=== PATIENT | female | born 1970 | race Caucasian/White ===

== ENCOUNTER 2016-04-20 13:31 | Emergency (ER) | payer OTHER ==
[2016-04-20 13:44] VITALS: TEMP 97.5; BMI 24.5
[2016-04-20] MEDS ORDERED: LORAZEPAM CARPU-JECT 2 MG/ML DISP.SYRIN IVPUSH ONE (14:35)
[2016-04-20] MEDS ORDERED: SODIUM CHLORIDE 1,000 ML IV STA (14:35)
[2016-04-20] MEDS ORDERED: METOCLOPRAMIDE HCL INJECTION 10 MG/2 ML VIAL IVPUSH ONE (14:35)
--- NOTE | 2016-04-20 14:38 | PDOC ---
History of Present Illness - General Chief Complaint: Nausea/Vomiting Stated Complaint: VOMITING Time Seen by Provider: 04/20/16 14:32 History Source: Patient, Spouse Exam Limitations: No Limitations - History of Present Illness Initial Comments: 04/20/16 14:36 The patient is a 45-year-old female, with a significant past medical history of bipolar disorder, who takes clonazepam 0.5 mg twice daily, and presents to the emergency department complaining of nausea, vomiting and "feeling very jittery. " She has vomited approximately 8 times between yesterday and now. There was no blood or bile in the vomit. She denies abdominal pain. She denies diarrhea. She reports mild chills, but denies fever. She states that she has not been able to take any of her oral medications, and feels that she is "withdrawing from the clonazepam." Her states that in the past, if she has missed 2 doses of clonazepam, she has "had withdrawal." She also drank approximately 5 alcoholic beverages yesterday, which is very atypical for her. Past History - Past Medical History Allergies/Adverse Reactions: Allergies Allergy/AdvReac Type Severity Reaction Status Date / Time No Known Allergies Allergy Verified 04/20/16 13:40 Home Medications: Ambulatory Orders Quetiapine Fumarate [SEROquel] 25 mg PO HS 04/17/11 Fluvoxamine Maleate 50 mg PO BID 09/14/12 Lamotrigine 150 mg PO DAILY 09/14/12 Quinapril HCl [Accupril] 20 mg PO DAILY 09/14/12 Atorvastatin Ca [Lipitor] 40 mg PO HS #0 tablet 09/18/12 Clonazepam [Klonopin -] 0.5 mg PO BID #0 tablet 09/18/12 Pantoprazole Sodium [Protonix -] 40 mg PO DAILY #0 tablet.ec 09/18/12 Anemia: No Asthma: No Cancer: No Cardiac Disorders: Yes (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) CVA: No COPD: No CHF: No Dementia: No Diabetes: Yes (borderline) GI Disorders: Yes (ULCERS) Disorders: Yes HTN: Yes Hypercholesterolemia: Yes Liver Disease: No Psychiatric Problems: Yes (BOPOLAR) Seizures: No Thyroid Disease: No - Surgical History Abdominal Surgery: Yes Appendectomy: No Cardiac Surgery: Yes (heart sx as a child) Cholecystectomy: No Lung Surgery: No Neurologic Surgery: No Orthopedic Surgery: No - Psycho/Social/Smoking Cessation Hx Anxiety: Yes Suicidal Ideation: No Smoking Status: No Smoking History: Never smoked Have you smoked in the past 12 months: No Number of Cigarettes Smoked Daily: 0 Hx Alcohol Use: Yes (SOCIAL) Drug/Substance Use Hx: No Substance Use Type: None Hx Substance Use Treatment: No Review of Systems - Review of Systems Comments:: 04/20/16 14:37 CONSTITUTIONAL: Absent: fever, chills, diaphoresis, generalized weakness, malaise, loss of appetite HEENT: Absent: rhinorrhea, nasal congestion, throat pain, throat swelling, difficulty swallowing, mouth swelling, ear pain, eye pain, visual Changes CARDIOVASCULAR: Absent: chest pain, loss of consciousness, palpitations, irregular heart rate, peripheral edema RESPIRATORY: Absent: cough, shortness of breath, dyspnea with exertion, orthopnea, wheezing, stridor, hemoptysis GASTROINTESTINAL: Present: See history of present illness Absent: abdominal pain, abdominal distension, diarrhea, constipation, melena, hematochezia GENITOURINARY: Absent: dysuria, frequency, urgency, hesitancy, hematuria, flank pain, genital pain MUSCULOSKELETAL: Absent: myalgia, arthralgia, joint swelling SKIN: Absent: rash, itching, pallor HEMATOLOGIC/IMMUNOLOGIC: Absent: easy bleeding, easy bruising, lymphadenopathy, frequent infections ENDOCRINE: Absent: unexplained weight gain, unexplained weight loss, heat intolerance, cold intolerance NEUROLOGIC: Absent: headache, focal weakness or paresthesias, dizziness, unsteady gait, seizure, mental status changes, bladder or bowel incontinence PSYCHIATRIC: Absent: anxiety, depression, suicidal or homicidal ideation, hallucinations. *Physical Exam - Vital Signs Last Vital Signs Temp Pulse Resp BP Pulse Ox 97.5 F L 87 19 143/81 97 04/20/16 13:40 04/20/16 13:40 04/20/16 13:40 04/20/16 13:40 04/20/16 13:40 - Physical Exam Comments: 04/20/16 14:37 GENERAL: Well developed, well nourished. Awake and alert. No acute distress. HEENT: Normocephalic, atraumatic. PERRLA, EOMI. No conjunctival pallor. Sclera are non- icteric. Moist mucous membranes. Oropharynx is clear. NECK: Supple. Full ROM. No JVD. Carotid pulses 2+ and symmetric, without bruits. No thyromegaly. No lymphadenopathy. CARDIOVASCULAR: Regular rate and rhythm. No murmurs, rubs, or gallops. Distal pulses are 2+ and symmetric. PULMONARY: No evidence of respiratory distress. Lungs clear to auscultation bilaterally. No wheezing, rales or rhonchi. ABDOMINAL: Soft. Non-tender. Non-distended. No rebound or guarding. No organomegaly. Normoactive bowel sounds. MUSCULOSKELETAL Normal range of motion at all joints. No bony deformities or tenderness. No CVA tenderness. EXTREMITIES: No cyanosis. No clubbing. No edema. No calf tenderness. SKIN: Warm and dry. Normal capillary refill. No rashes. No jaundice. NEUROLOGICAL: Alert, awake, appropriate. Cranial nerves 2-12 intact. No deficits to light touch and temperature in face, upper extremities and lower extremities. No motor deficits in the in face, upper extremities and lower extremities. Normoreflexic in the upper and lower extremities. Normal speech. Toes are down- going bilaterally. Gait is normal without ataxia. PSYCHIATRIC: Cooperative. Good eye contact. Appropriate mood and affect. Medical Decision Making - Medical Decision Making 04/20/16 14:37 The patient is well-appearing and in no acute distress There is no objective evidence of benzodiazepine withdrawal Her abdomen is soft and nontender Will administer IV fluids, IV Ativan, IV Reglan I am avoiding the use of Zofran, because she is on several medications that can prolong the QT interval 04/20/16 15:29 Symptoms resolved after medications Repeat abdominal examination nontender The patient states that she would like to go home Clinical impression: Nausea and vomiting; resolved I discussed the physical exam findings, ancillary test results and final diagnoses with the patient. I answered all of the patient's questions. The patient was satisfied with the care received and felt comfortable with the discharge plan and treatment plan. The patient will call their primary care physician within 24 hours to arrange follow-up and will return to the Emergency Department with any new, persistent or worsening symptoms. *DC/Admit/Observation/Transfer Diagnosis at time of Disposition: Nausea & vomiting - Discharge Dispostion Disposition: HOME - Referrals Referrals: Ronna Maki MD [Primary Care Provider] - - Patient Instructions Printed Discharge Instructions: DI for Nausea -- Adult, DI for Vomiting -- Adult Additional Instructions: Return to the emergency department immediately with ANY new, persistent or worsening symptoms. You MUST call and follow up with your doctor tomorrow. Please make sure your doctor reviews the results of your emergency department evaluation. - Post Discharge Activity Work/School Note: Back to Work
[2016-04-20 16:25] VITALS: BP 110/70; PULSE 78
== END 2016-04-20 16:26 | disposition home or self-care (01) ==
LOC: JER 13:31
PROC: 3E033NZ Introduction of Analgesics, Hypnotics, Sedatives into Peripheral Vein, Percutaneous Approach (ICD-10-PCS; principal; 2016-04-20)
PROC: 3E033GC Introduction of Other Therapeutic Substance into Peripheral Vein, Percutaneous Approach (ICD-10-PCS; 2016-04-20)
DX: R11.2 Nausea with vomiting, unspecified (principal); I10 Essential (primary) hypertension; E11.9 Type 2 diabetes mellitus without complications; E78.00 Pure hypercholesterolemia, unspecified; F31.9 Bipolar disorder, unspecified
CPT/HCPCS: 99282-25

== ENCOUNTER 2018-03-26 15:05 | Emergency (ER) | payer OTHER ==
--- NOTE | 2018-03-26 15:28 | PDOC ---
Rapid Medical Evaluation Time Seen by Provider: 03/26/18 15:25 Medical Evaluation: Allergies Allergy/AdvReac Type Severity Reaction Status Date / Time No Known Allergies Allergy Verified 04/20/16 13:40 03/26/18 15:25 Pt presents to the ED for nausea and vomiting starting yesterday. States she went out to eat and drink yesterday and had 4 drinks yesterday. Also admits to associated headache Exam: ambulatory, NAD Orders: Labs, IV Pt to proceed to the ED for further evaluation Discharge Disposition - Diagnosis Nausea & vomiting - Referrals - Patient Instructions - Post Discharge Activity
[2018-03-26 15:29] VITALS: BP 147/87; PULSE 87; TEMP 98.3; BMI 27.3
[2018-03-26 16:05] LABS: BASO % 0.4 % (0-2.0); EOS % 0.1 % (0-4.5); HEMOGLOBIN 13.6 GM/dL (10.7-15.3); LYMPH % 19.8 % (8-40); MCH 32.6 pg (25.7-33.7); MEAN CELL VOLUME 93.1 fl (80-96); MEAN PLT VOLUME 7.7 fl (7.5-11.1); MONO % 5.1 % (3.8-10.2); NEUT % 74.6 % (42.8-82.8); PLATELET COUNT 227 K/MM3 (134-434); RBC 4.18 M/mm3 (3.60-5.2); RDW 12.9 % (11.6-15.6); WHITE BLOOD COUNT 7.7 K/mm3 (4.0-10.0)
[2018-03-26 16:26] LABS: ALBUMIN 4.2 g/dl (3.4-5.0); ALK PHOS 53 U/L (45-117); ANION GAP 8 MMOL/L (8-16); BILIRUBIN,TOTAL 0.3 mg/dL (0.2-1); BLOOD UREA NITROGEN 22 mg/dL (7-18); CALCIUM 9.9 mg/dL (8.5-10.1); CHLORIDE 109 mmol/L (98-107); CO2 27 mmol/L (21-32); CREATININE 1.1 mg/dL (0.55-1.3); GLUCOSE,RANDOM 110 mg/dL (74-106); POTASSIUM 4.2 mmol/L (3.5-5.1); SGOT/AST 14 U/L (15-37); SGPT/ALT 24 U/L (13-61); SODIUM 144 mmol/L (136-145); TOT PROT 7.3 g/dl (6.4-8.2)
[2018-03-26] MEDS ORDERED: ONDANSETRON 4 MG/2 ML VIAL IVPUSH ONE (16:43)
[2018-03-26] MEDS ORDERED: SODIUM CHLORIDE 1,000 ML IV STA (16:43)
[2018-03-26] MEDS ORDERED: FAMOTIDINE 20 MG/50 ML IVPB 20 MG/50 ML MG IVPB ONE ×2 (16:43→17:02)
--- NOTE | 2018-03-26 16:45 | PDOC ---
Attending Attestation - Resident Resident Name: Roney Abreu - ED Attending Attestation I have performed the following: I have examined & evaluated the patient, The case was reviewed & discussed with the resident, I agree w/resident's findings & plan, Exceptions are as noted - HPI HPI: 03/26/18 16:45 47y F hx of bipolar disorder presents with nausea/vomiting since this morning. The patient notes she felt fine yestrerday, went out to dinner and had several drinks and appetitizers and went to bed ok. This morning she woke up feeling very nauseus, multiple episodes of nbnb vomiting and abd sorenessa after the vomiting. she also endorses a few episodes of soft stool. She feels dehydrated, denies any current abd pain, fever/chills, dysuria, melena, bpr, cp, sob, generalized or focal weakness. social: denies ivdu - Physicial Exam PE: 03/26/18 18:00 GENERAL: The patient is awake, alert, and fully oriented, Nontoxic - in no acute distress. HEAD: Normocephalic, atraumatic. ABDOMEN: Soft, nontender, No guarding, no rebound. . No CVA tenderness EXTREMITIES: Normal range of motion, no edema. - Medical Decision Making 03/26/18 18:01 suspect alcohol gastriits/dehdyration/ hang over pt feeling improved after fluids, pepcid labs unremarkble abd reassessed at discharge and is soft nontender will dc with pmd fu I discussed the physical exam findings, ancillary test results and final diagnoses with the patient. I answered all of the patient's questions. The patient was satisfied with the care received and felt comfortable with the discharge plan and treatment plan. The patient will call their primary care physician within 24 hours to arrange follow-up and will return to the Emergency Department with any new, persistent or worsening symptoms.
[2018-03-26] MEDS ORDERED: ONDANSETRON 4 MG/2 ML VIAL ONE (17:02)
--- NOTE | 2018-03-26 17:12 | PDOC ---
History of Present Illness - General Chief Complaint: Vomiting/Diarrhea Stated Complaint: VOMITTING/DIARRHEA Time Seen by Provider: 03/26/18 15:25 History Source: Patient Exam Limitations: No Limitations - History of Present Illness Initial Comments: 03/26/18 17:08 Patient is a 47F with history of bipolar disorder presenting today with vomiting that started at 3am. Patient states that she had four alcoholic drinks yesterday and states that she gets like this after that many drinks. Denies blood and bile in vomit. Denies fevers, chills, abdominal pain, dysuria. Denies chest pain, shortness of breath, weakness. States that she feels dehydrated. Past History - Past Medical History Allergies/Adverse Reactions: Allergies Allergy/AdvReac Type Severity Reaction Status Date / Time No Known Allergies Allergy Verified 03/26/18 15:26 Home Medications: Ambulatory Orders Quetiapine Fumarate [Seroquel -] 25 mg PO HS 04/17/11 Fluvoxamine Maleate 50 mg PO BID 09/14/12 Lamotrigine 150 mg PO DAILY 09/14/12 Quinapril HCl [Accupril -] 20 mg PO DAILY 09/14/12 Atorvastatin Ca [Lipitor] 40 mg PO HS #0 tablet 09/18/12 Pantoprazole Sodium [Protonix -] 40 mg PO DAILY #0 tablet.ec 09/18/12 clonazePAM [Klonopin -] 0.5 mg PO BID #0 tablet 09/18/12 Metoclopramide HCl [Reglan] 10 mg PO TID PRN #3 tablet 04/20/16 Anemia: No Asthma: No Cancer: No Cardiac Disorders: Yes (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) CVA: No COPD: No CHF: No Dementia: No Diabetes: Yes (borderline) GI Disorders: Yes (ULCERS) Disorders: Yes HTN: Yes Hypercholesterolemia: Yes Liver Disease: No Psychiatric Problems: Yes (BOPOLAR) Seizures: No Thyroid Disease: No - Surgical History Abdominal Surgery: Yes Appendectomy: No Cardiac Surgery: Yes (heart sx as a child) Cholecystectomy: No Lung Surgery: No Neurologic Surgery: No Orthopedic Surgery: No - Suicide/Smoking/Psychosocial Hx Smoking Status: No Smoking History: Never smoked Have you smoked in the past 12 months: No Number of Cigarettes Smoked Daily: 0 Hx Alcohol Use: Yes (SOCIAL) Drug/Substance Use Hx: No Substance Use Type: None Hx Substance Use Treatment: No Review of Systems - Review of Systems Comments:: 03/26/18 17:11 GENERAL/CONSTITUTIONAL: No fever or chills. No weakness. HEAD, EYES, EARS, NOSE AND THROAT: No change in vision. No sore throat. CARDIOVASCULAR: No chest pain or shortness of breath RESPIRATORY: No cough, wheezing, or hemoptysis. GASTROINTESTINAL: +nausea, +vomiting, no diarrhea or constipation. GENITOURINARY: No dysuria, frequency, or change in urination. MUSCULOSKELETAL: No joint or muscle swelling or pain. No neck or back pain. SKIN: No rash NEUROLOGIC: No headache, vertigo, loss of consciousness, or change in strength/ sensation. ENDOCRINE: No increased thirst. No abnormal weight change HEMATOLOGIC/LYMPHATIC: No anemia, easy bleeding, or history of blood clots. ALLERGIC/IMMUNOLOGIC: No hives or skin allergy. *Physical Exam - Vital Signs Last Vital Signs Temp Pulse Resp BP Pulse Ox 98.3 F 87 19 147/87 97 03/26/18 15:26 03/26/18 15:26 03/26/18 15:26 03/26/18 15:26 03/26/18 15:26 - Physical Exam Comments: 03/26/18 17:11 GENERAL: Awake, alert, and fully oriented, in no acute distress HEAD: No signs of trauma, normocephalic, atraumatic EYES: PERRLA, EOMI, sclera anicteric, conjunctiva clear ENT: Auricles normal inspection, hearing grossly normal, nares patent, oropharynx clear without exudates. Moist mucosa NECK: Normal ROM, supple, no lymphadenopathy, JVD, or masses LUNGS: No distress, speaks full sentences, clear to auscultation bilaterally HEART: Regular rate and rhythm, normal S1 and S2, no murmurs, rubs or gallops, peripheral pulses normal and equal bilaterally. ABDOMEN: Soft, nontender, normoactive bowel sounds. No guarding, no rebound. No masses EXTREMITIES: Normal inspection, Normal range of motion, no edema. No clubbing or cyanosis. NEUROLOGICAL: Cranial nerves II through XII grossly intact. Normal speech, normal gait, no focal sensorimotor deficits SKIN: Warm, Dry, normal turgor, no rashes or lesions noted. Moderate Sedation - Procedure Monitoring Vital Signs: Procedure Monitoring Vital Signs Temperature 98.3 F 03/26/18 15:26 Pulse Rate 87 03/26/18 15:26 Respiratory Rate 19 03/26/18 15:26 Blood Pressure 147/87 03/26/18 15:26 O2 Sat by Pulse Oximetry (%) 97 03/26/18 15:26 ED Treatment Course - LABORATORY CBC & Chemistry Diagram: 03/26/18 15:44 03/26/18 15:44 - ADDITIONAL ORDERS Additional order review: Laboratory Results 03/26/18 15:44 Sodium 144 Potassium 4.2 Chloride 109 H Carbon Dioxide 27 Anion Gap 8 BUN 22 H Creatinine 1.1 Creat Clearance w eGFR 53.24 Random Glucose 110 H Calcium 9.9 Total Bilirubin 0.3 AST 14 L ALT 24 Alkaline Phosphatase 53 Total Protein 7.3 Albumin 4.2 03/26/18 15:44 RBC 4.18 MCV 93.1 MCHC 35.0 RDW 12.9 MPV 7.7 Neutrophils % 74.6 D Lymphocytes % 19.8 D Monocytes % 5.1 Eosinophils % 0.1 D Basophils % 0.4 Medical Decision Making - Medical Decision Making 03/26/18 17:11 Patient is 47F here today with vomiting, likely 2/2 alcoholic gastritis. Vitals stable and normal. Will treat with fluids, zofran. Likely discharge with return precautions. Labs drawn in [facility]. 03/26/18 17:52 Reassessed, feels improved. Will discharge home. *DC/Admit/Observation/Transfer Diagnosis at time of Disposition: Nausea & vomiting - Discharge Dispostion Disposition: HOME Condition at time of disposition: Good Decision to Admit order: No - Referrals Referrals: Ronna Maki MD [Primary Care Provider] - - Patient Instructions Printed Discharge Instructions: DI for Vomiting -- Adult Additional Instructions: Please return if you have any new, worsening or concerning symptoms, especially increasing pain, fever, and repeated vomiting. - Post Discharge Activity
== END 2018-03-26 18:42 | disposition home or self-care (01) ==
LOC: JER 15:05
PROC: 3E0337Z Introduction of Electrolytic and Water Balance Substance into Peripheral Vein, Percutaneous Approach (ICD-10-PCS; principal; 2018-03-26)
PROC: 3E033GC Introduction of Other Therapeutic Substance into Peripheral Vein, Percutaneous Approach (ICD-10-PCS; 2018-03-26)
PROC: 3E033GC Introduction of Other Therapeutic Substance into Peripheral Vein, Percutaneous Approach (ICD-10-PCS; 2018-03-26)
DX: K29.21 Alcoholic gastritis with bleeding (principal); I10 Essential (primary) hypertension; E78.00 Pure hypercholesterolemia, unspecified; E11.9 Type 2 diabetes mellitus without complications; F31.9 Bipolar disorder, unspecified; Z87.19 Personal history of other diseases of the digestive system
CPT/HCPCS: 36415; 80053; 85025; 99282-25; J7030

== ENCOUNTER 2018-03-27 12:13 | Emergency (ER) | payer OTHER ==
--- NOTE | 2018-03-27 12:17 | PDOC ---
History of Present Illness - General Chief Complaint: Nausea/Vomiting Stated Complaint: NAUSEA VOMITING Time Seen by Provider: 03/27/18 12:17 - History of Present Illness Initial Comments: 03/27/18 15:16 Chief complaint: Nausea and vomiting History of present illness: Drinking heavily 2 nights ago, patient does not usually consume alcohol. Yesterday had nausea and vomiting, was treated at [facility] with intravenous fluids and anti-emetics. Blood work was negative and condition improved with discharge This morning recurrent nausea and vomiting. Review of systems: Denies chest pain, shortness of breath, abdominal pain, hematemesis, melena, bloody stool, urinary tract symptoms, vaginal bleeding or discharge. Denies visual or focal neurologic symptoms, unsteadiness of gait. Has been unable to tolerate her usual medications Past medical history: Bipolar illness, seizure disorder, high blood pressure, elevated cholesterol, anxiety Social history: , stable home and family, usually does not consume alcohol because of her medications, no tobacco or other drugs Family history: Reviewed and noncontributory Physical exam: Alert and oriented well-developed well-nourished no acute distress cooperative Afebrile, vital signs normal PERRLA, fundi benign, ENT clear. No pallor or icterus Neck supple without bruit mass or nodes Chest clear CV regular without murmur rub or gallop no tachycardia Abdomen nondistended. Bowel sounds normal. Soft without mass tenderness organomegaly. No CVAT No pelvic tenderness Extremities no CCE Skin clear, no rash, adequate turgor and wet mucous membranes Neurological intact Impression: Gastroenteritis, mild dehydration, no abdominal pain Plan: Rehydrate, antiemetics, observe. Further treatment depending on results to therapy Past History - Past Medical History Allergies/Adverse Reactions: Allergies Allergy/AdvReac Type Severity Reaction Status Date / Time No Known Allergies Allergy Verified 03/27/18 12:15 Home Medications: Ambulatory Orders Quetiapine Fumarate [Seroquel -] 25 mg PO HS 04/17/11 Fluvoxamine Maleate 50 mg PO BID 09/14/12 Lamotrigine 150 mg PO DAILY 09/14/12 Quinapril HCl [Accupril -] 5 mg PO DAILY 09/14/12 Atorvastatin Ca [Lipitor] 40 mg PO HS #0 tablet 09/18/12 clonazePAM [Klonopin -] 0.5 mg PO BID #0 tablet 09/18/12 Ondansetron [Zofran Odt -] 4 - 8 mg SL TID PRN #12 od.tablet 03/27/18 Anemia: No Asthma: No Cancer: No Cardiac Disorders: Yes (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) CVA: No COPD: No CHF: No Dementia: No Diabetes: Yes (borderline) GI Disorders: Yes (ULCERS) Disorders: Yes HTN: Yes Hypercholesterolemia: Yes Liver Disease: No Psychiatric Problems: Yes (BOPOLAR) Seizures: No Thyroid Disease: No - Surgical History Abdominal Surgery: Yes Appendectomy: No Cardiac Surgery: Yes (heart sx as a child) Cholecystectomy: No Lung Surgery: No Neurologic Surgery: No Orthopedic Surgery: No - Suicide/Smoking/Psychosocial Hx Smoking Status: No Smoking History: Never smoked Have you smoked in the past 12 months: No Number of Cigarettes Smoked Daily: 0 Hx Alcohol Use: Yes (SOCIAL) Drug/Substance Use Hx: No Substance Use Type: None Hx Substance Use Treatment: No ED Treatment Course - LABORATORY CBC & Chemistry Diagram: 03/27/18 12:56 03/27/18 12:25 Medical Decision Making - Medical Decision Making 03/27/18 15:20 CBC and chemistries without significant abnormalities. Patient is much improved. No further vomiting. Nausea is controlled. Discharged in no distress with her , who continue Zofran at home, by mouth hydration , and follow-up as directed. *DC/Admit/Observation/Transfer Diagnosis at time of Disposition: Gastroenteritis - Discharge Dispostion Disposition: HOME Condition at time of disposition: Improved Decision to Admit order: No - Prescriptions Prescriptions: Ondansetron [Zofran Odt -] 4 - 8 mg SL TID PRN #12 od.tablet PRN Reason: Nausea And/Or Vomiting - Referrals Referrals: Reji Winkler MD [Staff Physician] - - Patient Instructions Printed Discharge Instructions: DI for Nausea -- Adult, DI for Vomiting -- Adult - Post Discharge Activity
[2018-03-27] MEDS ORDERED: SODIUM CHLORIDE 1,000 ML IV STA (12:18)
[2018-03-27] MEDS ORDERED: ONDANSETRON 4 MG/2 ML VIAL IVPB ONE (12:18)
[2018-03-27] MEDS ORDERED: PANTOPRAZOLE SODIUM 40 MG in SODIUM CHLORIDE 100 ML IVPB ONE (12:18)
[2018-03-27 12:35] VITALS: BP 140/75; PULSE 72; TEMP 98; BMI 27.3
[2018-03-27] MEDS ORDERED: ONDANSETRON 4 MG/2 ML VIAL ONE (13:00)
[2018-03-27] MEDS ORDERED: PANTOPRAZOLE SODIUM 40 MG VIAL ONE (13:00)
[2018-03-27 13:31] LABS: URINE APPEARANCE Clear; URINE BILIRUBIN Negative (NEGATIVE); URINE COLOR Yellow; URINE GLUCOSE (UA) Negative (NEGATIVE); URINE KETONE 1+ (NEGATIVE); URINE LEUK ESTERASE Negative (NEGATIVE); URINE NITRITE Negative (NEGATIVE); URINE PROTEIN Trace (NEGATIVE); URINE UROBILINOGEN 0.2 (0.2-1.0)
[2018-03-27 13:41] LABS: ALBUMIN 3.9 g/dl (3.4-5.0); ALK PHOS 44 U/L (45-117); ANION GAP 9 MMOL/L (8-16); BILIRUBIN,TOTAL 0.6 mg/dl (0.2-1); BLOOD UREA NITROGEN 17 mg/dl (7-18); CALCIUM 8.7 mg/dl (8.5-10); CHLORIDE 108 mmol/L (98-107); CO2 23 mmol/L (21-32); CREATININE 1.1 mg/dl (0.55-1.3); GLUCOSE,RANDOM 122 mg/dl (74-106); POTASSIUM 3.8 mmol/L (3.5-5.1); SGOT/AST 21 U/L (15-37); SGPT/ALT 18 U/L (13-61); SODIUM 140 mmol/L (136-145); TOT PROT 6.5 g/dl (6.4-8.2)
[2018-03-27 13:42] LABS: BASO % 0.6 % (0-2.0); EOS % 0.1 % (0-4.5); HEMATOCRIT 38.5 % (32.4-45.2); HEMOGLOBIN 12.9 GM/dl (10.7-15.3); LYMPH % 21.3 % (8-40); MCH 31.2 pg (25.7-33.7); MCHC 33.5 g/dl (32.0-36.0); MEAN PLT VOLUME 7.8 fl (7.5-11.1); MONO % 4.6 % (3.8-10.2); NEUT % 73.4 % (42.8-82.8); PLATELET COUNT 216 K/MM3 (134-434); RBC 4.14 M/mm3 (3.60-5.2); RDW 12.3 % (11.6-15.6); WHITE BLOOD COUNT 7.5 K/mm3 (4.0-10.8)
== END 2018-03-27 15:30 | disposition home or self-care (01) ==
LOC: FER 12:13
DX: K52.9 Noninfective gastroenteritis and colitis, unspecified (principal)
CPT/HCPCS: 36415; 80053; 81003; 85025; 99282-25; J7030

== ENCOUNTER 2020-02-23 18:54 | Emergency (ER) | payer OTHER ==
[2020-02-23 19:36] VITALS: BP 139/85; PULSE 83; TEMP 99; BMI 28.3
[2020-02-23] MEDS ORDERED: ONDANSETRON 4 MG/2 ML VIAL IVPUSH ONE (20:00)
[2020-02-23] MEDS ORDERED: SODIUM CHLORIDE 1,000 ML IV STA (20:00)
[2020-02-23] MEDS ORDERED: ACETAMINOPHEN 1000 MG/100 ML BAG IVPB ONE (20:00)
[2020-02-23] MEDS ORDERED: FAMOTIDINE 20 MG/50 ML IVPB 20 MG/50 ML MG IVPB ONE ×2 (20:01→20:24)
[2020-02-23 20:06] LABS: EPITHELIAL CELLS RARE /hpf
[2020-02-23] MEDS ORDERED: ACETAMINOPHEN INJECTION 100 ML IVPB ONE (20:09)
[2020-02-23] MEDS ORDERED: ONDANSETRON 4 MG/2 ML VIAL ONE (20:09)
[2020-02-23 20:27] LABS: BASO % 0.9 % (0-2.0); HEMATOCRIT 40.4 % (32.4-45.2); HEMOGLOBIN 14.1 GM/dl (10.7-15.3); LYMPH % 15.4 % (8-40); MCH 31.7 pg (25.7-33.7); MCHC 34.8 g/dl (32.0-36.0); MEAN PLT VOLUME 7.7 fl (7.5-11.1); MONO % 5.4 % (3.8-10.2); NEUT % 78.3 % (42.8-82.8); PLATELET COUNT 255 K/MM3 (134-434); RBC 4.43 M/mm3 (3.60-5.2); RDW 11.7 % (11.6-15.6)
[2020-02-23 20:35] LABS: ALBUMIN 4.5 g/dl (3.4-5.0); BILIRUBIN,TOTAL 0.5 mg/dl (0.2-1); CALCIUM 9.9 mg/dl (8.5-10); CREATININE 1.1 mg/dl (0.55-1.3); MAGNESIUM 1.6 mg/dL (1.8-2.4); TOT PROT 7.4 g/dl (6.4-8.2)
[2020-02-23] MEDS ORDERED: MAGNESIUM SULF 50% (8.12 MEQ/2 ML-1 GM VIAL) ONE (21:20)
== END 2020-02-23 22:40 | disposition home or self-care (01) ==
LOC: FER 18:54
PROC: 3E0333Z Introduction of Anti-inflammatory into Peripheral Vein, Percutaneous Approach (ICD-10-PCS; principal; 2020-02-23)
PROC: 3E033GC Introduction of Other Therapeutic Substance into Peripheral Vein, Percutaneous Approach (ICD-10-PCS; 2020-02-23)
PROC: 3E033GC Introduction of Other Therapeutic Substance into Peripheral Vein, Percutaneous Approach (ICD-10-PCS; 2020-02-23)
PROC: 3E033GC Introduction of Other Therapeutic Substance into Peripheral Vein, Percutaneous Approach (ICD-10-PCS; 2020-02-23)
PROC: 3E0337Z Introduction of Electrolytic and Water Balance Substance into Peripheral Vein, Percutaneous Approach (ICD-10-PCS; 2020-02-23)
DX: R11.10 Vomiting, unspecified (principal); K52.9 Noninfective gastroenteritis and colitis, unspecified; R10.9 Unspecified abdominal pain
CPT/HCPCS: 36415; 80053; 81003; 81015; 82962; 83690; 83735; 85025; 99284-25; C9803; J0131; U0003

== ENCOUNTER 2021-12-11 15:00 | Emergency (ER) | payer OTHER ==
[2021-12-11 15:23] VITALS: RESP 18; TEMP 97.7; BMI 28.3
[2021-12-11] MEDS ORDERED: ONDANSETRON 4 MG/2 ML VIAL IVPUSH ONE (15:49)
[2021-12-11] MEDS ORDERED: SODIUM CHLORIDE 0.9% 500 ML INFUS.BAG IV ONE (15:49)
[2021-12-11] MEDS ORDERED: ONDANSETRON 4 MG/2 ML VIAL ONE (16:17)
[2021-12-11 16:41] LABS: HEMATOCRIT 41.9 % (32.4-45.2); HEMOGLOBIN 14.6 G/dL (10.7-15.3); MCH 31.8 pg (25.7-33.7); MCHC 34.9 g/dl (32.0-36.0); MEAN CELL VOLUME 91.1 fl (80-96); MEAN PLT VOLUME 7.2 fl (7.5-11.1); PLATELET COUNT 229.3 10^3/uL (134-434); RDW 13.5 % (11.6-15.6); WHITE BLOOD COUNT 8.6 10^3/uL (4.0-10.8)
[2021-12-11 16:54] LABS: ALBUMIN 4.7 g/dl (3.4-5.0); BILIRUBIN,TOTAL 0.6 mg/dl (0.2-1); CALCIUM 10.4 mg/dl (8.5-10); CREATININE 1.3 mg/dl (0.55-1.3); TOT PROT 7.8 g/dl (6.4-8.2)
[2021-12-11 17:13] LABS: EPITHELIAL CELLS MODERATE /hpf
[2021-12-11 17:41] VITALS: BP 120/82; PULSE 84
== END 2021-12-11 18:07 | disposition home or self-care (01) ==
LOC: FER 15:00
PROC: 3E033NZ Introduction of Analgesics, Hypnotics, Sedatives into Peripheral Vein, Percutaneous Approach (ICD-10-PCS; principal; 2021-12-11)
DX: R11.2 Nausea with vomiting, unspecified (principal)
CPT/HCPCS: 36415; 80053; 81003; 81015; 84484; 85027; 99284-25

== ENCOUNTER 2023-12-10 04:37 | Day surgery (SDC) | payer BC, OTHER ==
[2023-12-06 13:56] VITALS: BMI 25.6
[2023-12-10 09:16] VITALS: TEMP 97.2
[2023-12-10 09:28] VITALS: RESP 17
[2023-12-10 09:49] VITALS: BP 110/75; PULSE 66
== END 2023-12-10 10:15 | disposition home or self-care (01) ==
LOC: JASU-ENDO 04:37
PROVIDERS: ATTEND Internal Medicine Gastroenterology
PROC: 0DB98ZX Excision of Duodenum, Via Natural or Artificial Opening Endoscopic, Diagnostic (ICD-10-PCS; 2023-12-10)
PROC: 0DB78ZX Excision of Stomach, Pylorus, Via Natural or Artificial Opening Endoscopic, Diagnostic (ICD-10-PCS; 2023-12-10)
PROC: 0DB68ZX Excision of Stomach, Via Natural or Artificial Opening Endoscopic, Diagnostic (ICD-10-PCS; 2023-12-10)
PROC: 0DJD8ZZ Inspection of Lower Intestinal Tract, Via Natural or Artificial Opening Endoscopic (ICD-10-PCS; principal; 2023-12-10 08:30)
DX: Z12.11 Encounter for screening for malignant neoplasm of colon (principal); K57.30 Diverticulosis of large intestine without perforation or abscess without bleeding; K29.50 Unspecified chronic gastritis without bleeding; K21.00 Gastro-esophageal reflux disease with esophagitis, without bleeding; R19.5 Other fecal abnormalities
CPT/HCPCS: 43239; G0121; 82962; 88305-TC; 88342-TC